=== PATIENT | male | born 1955 | race Caucasian/White ===

== ENCOUNTER 2018-09-30 10:48 | Inpatient (IN) | payer OTHER ==
[~2018-09-30] VITALS: Ht 182.9 cm; Wt 90.6 kg
[~2018-09-30 10:48] MED LIST: ASPI81TA45 PO; ATOR40TA78 PO; HYDR25TA6 PO; INSU100I13 SQ-INSULIN; LISI-167 PO; METF850T PO
[2018-09-30] MEDS ORDERED: LOSA25TA6 PO (11:40)
[2018-09-30] MEDS ORDERED: SODIUM CHLORIDE FLUSH 10ML SYR IVF ONE (12:00)
[2018-09-30 12:52] LABS: ALANINE AMINOTRANSFERASE 23 U/L (12-78); ALBUMIN 3.5 g/dL (3.4-5.0); ANION GAP 7 mmol/L (5-15); CALCIUM 8.8 mg/dL (8.5-10.1); CHLORIDE 103 mmol/L (98-107); CREATININE 1.01 mg/dL (0.7-1.3); INTERNATIONAL NORMALIZED RATIO 1.08 (0.93-1.1); PROTHROMBIN TIME 11.4 Seconds (9.6-11.5)
[2018-09-30] MEDS ORDERED: LABETALOL 20 MG/4 ML ONE ×2 (12:55→13:55)
[2018-09-30 12:56] LABS: ALKALINE PHOSPHATASE 84 U/L (45-117); BILIRUBIN,TOTAL 0.9 mg/dL (0.2-1.0); TOTAL PROTEIN 6.9 g/dL (6.4-8.2); TROPONIN I < 0.015 ng/mL (0.000-0.045)
[2018-09-30] MEDS ORDERED: LABETALOL 5MG/ML, 20ML IVPush ONE ×2 (13:00→14:00)
[2018-09-30 13:03] LABS: MEAN CORPUSCULAR HEMOGLOBIN 32.1 pg (27.5-34.5); MEAN CORPUSCULAR VOLUME 92.3 fL (81-97); RED BLOOD COUNT 5.03 x10^6/uL (4.38-5.82)
[2018-09-30 13:04] LABS: BASOPHILS # (AUTO) 0.02 x10^3/uL (0-0.1); BASOPHILS % (AUTO) 0 % (0-1); EOSINOPHILS # (AUTO) 0.14 x10^3/uL (0-0.4); EOSINOPHILS % (AUTO) 2 % (1-7); LYMPHOCYTES # (AUTO) 1.48 x10^3/uL (1-3.4); LYMPHOCYTES % (AUTO) 23 % (22-44); MD NO; MEAN CORPUSCULAR HGB CONC 34.8 g/dL (33.2-36.2); MEAN PLATELET VOLUME 7.9 fL (7.4-10.4); MONOCYTES # (AUTO) 0.52 x10^3/uL (0.2-0.8); MONOCYTES % (AUTO) 8 % (2-9); NEUTROPHILS # (AUTO) 4.31 x10^3/uL (1.8-6.8); NEUTROPHILS % (AUTO) 67 % (42-75); PLATELET COUNT 213 x10^3/uL (130-400); RED CELL DISTRIBUTION WIDTH 12.8 % (9.4-14.8)
[2018-09-30] MEDS ORDERED: ASPIRIN 325 MG TABLET PO ONE (14:00)
[2018-09-30] MEDS ORDERED: ASPIRIN 325 MG TABLET ONE (14:03)
[2018-09-30] MEDS ORDERED: GLUCAGON 1 MG IM PRN (15:00)
[2018-09-30] MEDS ORDERED: ONDANSETRON 2MG/ML, 2ML IVPush PRN (15:00)
[2018-09-30] MEDS ORDERED: ONDANSETRON ODT 4 MG PO PRN (15:00)
[2018-09-30] MEDS ORDERED: DEXTROSE 4 GM TAB.CHEW PO PRN (15:00)
[2018-09-30] MEDS ORDERED: POLYETHYLENE GLYCOL 17 GM PACKET PO PRN (15:00)
[2018-09-30] MEDS ORDERED: DEXTROSE 50%, 50ML SYRINGE IVPush PRN (15:00)
[2018-09-30] MEDS ORDERED: LABETALOL 5MG/ML, 20ML IVPush PRN (15:00)
[2018-09-30 15:13] VITALS: BP 167/103
[2018-09-30 15:35] VITALS: BP 157/100
[2018-09-30] MEDS ORDERED: MAGNESIUM SULFATE PMX 2GM/50ML 50 ML IV ONE (16:00)
[2018-09-30] MEDS: ENOXAPARIN 40 MG/0.4 ML SQ SCH (16:08)
[2018-09-30 17:33] VITALS: BP 154/97
[2018-09-30] MEDS: INSULIN LISPRO 100 UNITS/ML, PEN SQ-INSULIN SCH ×2 (17:50→21:52)
[2018-09-30 18:05] LABS: MICROSCOPIC NOT IND
[2018-09-30 18:17] LABS: AMPHETAMINE SCREEN, URINE Negative (Negative); BARBITURATE SCREEN, URINE Negative (Negative); BENZODIAZEPINE SCREEN, URINE Negative (Negative); CANNABINOID SCREEN, URINE Negative (Negative); COCAINE SCREEN, URINE Negative (Negative); METHADONE SCREEN, URINE Negative (Negative); OPIATE SCREEN, URINE Negative (Negative)
[2018-09-30 18:27] LABS: CULTURE INDICATED? NO
[2018-09-30 19:00] VITALS: BP 150/94
[2018-09-30] MEDS: SODIUM CHLORIDE FLUSH 10ML SYR IVF SCH (21:00)
[2018-09-30] MEDS ORDERED: INSULIN GLARGINE 100 UNITS/ML, PEN SQ-INSULIN SCH (21:00)
[2018-09-30] MEDS ORDERED: DIPHENHYDRAMINE 25 MG CAPSULE ONE (21:50)
[2018-09-30] MEDS: ATORVASTATIN 40 MG TABLET PO SCH (21:51)
[2018-09-30] MEDS: INSULIN GLARGINE 100 UNITS/ML, PEN SQ-INSULIN SCH (21:52)
[2018-09-30] MEDS ORDERED: DIPHENHYDRAMINE 25 MG CAPSULE PO PRN (22:00)
[2018-10-01 04:14] VITALS: BP 145/99
[2018-10-01 05:25] LABS: BASOPHILS # (AUTO) 0.02 x10^3/uL (0-0.1); BASOPHILS % (AUTO) 0 % (0-1); EOSINOPHILS # (AUTO) 0.18 x10^3/uL (0-0.4); EOSINOPHILS % (AUTO) 4 % (1-7); LYMPHOCYTES % (AUTO) 37 % (22-44); MD NO; MEAN CORPUSCULAR HEMOGLOBIN 32.5 pg (27.5-34.5); MEAN CORPUSCULAR VOLUME 92.9 fL (81-97); MEAN PLATELET VOLUME 7.8 fL (7.4-10.4); MONOCYTES % (AUTO) 10 % (2-9); NEUTROPHILS # (AUTO) 2.41 x10^3/uL (1.8-6.8); NEUTROPHILS % (AUTO) 49 % (42-75); PLATELET COUNT 199 x10^3/uL (130-400); RED BLOOD COUNT 4.85 x10^6/uL (4.38-5.82); RED CELL DISTRIBUTION WIDTH 12.6 % (9.4-14.8)
[2018-10-01] MEDS: ASPIRIN 81 MG TABLET EC PO SCH (05:33)
[2018-10-01 05:38] LABS: ALANINE AMINOTRANSFERASE 19 U/L (12-78); ALBUMIN 3.3 g/dL (3.4-5.0); ANION GAP 7 mmol/L (5-15); CALCIUM 8.6 mg/dL (8.5-10.1); CHLORIDE 105 mmol/L (98-107)
[2018-10-01 05:50] LABS: ALKALINE PHOSPHATASE 76 U/L (45-117); BILIRUBIN,TOTAL 0.8 mg/dL (0.2-1.0); CREATININE 0.82 mg/dL (0.7-1.3); TOTAL PROTEIN 6.2 g/dL (6.4-8.2)
[2018-10-01] MEDS: INSULIN LISPRO 100 UNITS/ML, PEN SQ-INSULIN SCH ×4 (07:00→20:29)
[2018-10-01 07:17] VITALS: BP 142/94
[2018-10-01] MEDS ORDERED: POTASSIUM CHLORIDE 20 MEQ TAB.ER.PRT PO ONE ×2 (08:00→11:30)
[2018-10-01] MEDS: CLOPIDOGREL 75 MG TABLET PO SCH (09:40)
[2018-10-01] MEDS: SENNA/DOCUSATE TABLET PO SCH (09:41)
[2018-10-01] MEDS: SODIUM CHLORIDE FLUSH 10ML SYR IVF SCH ×2 (09:42→20:47)
[2018-10-01] MEDS ORDERED: INSULIN GLARGINE 100 UNITS/ML, PEN SQ-INSULIN SCH (11:00)
[2018-10-01] MEDS ORDERED: ACETAMINOPHEN 325 MG TABLET PO PRN (11:30)
[2018-10-01 13:23] VITALS: BP 157/101
[2018-10-01 14:54] VITALS: BP 157/98
[2018-10-01] MEDS: LOSARTAN 50MG TABLET PO SCH (14:56)
[2018-10-01] MEDS: HYDROCHLOROTHIAZIDE 25 MG TABLET PO SCH (14:56)
[2018-10-01] MEDS: ENOXAPARIN 40 MG/0.4 ML SQ SCH (17:01)
[2018-10-01] MEDS: ATORVASTATIN 40 MG TABLET PO SCH (20:26)
[2018-10-01] MEDS: INSULIN GLARGINE 100 UNITS/ML, PEN SQ-INSULIN SCH (20:29)
[2018-10-01 20:37] VITALS: BP 156/91
[2018-10-01] MEDS ORDERED: TEMAZEPAM 15 MG CAPSULE ONE (22:25)
[2018-10-01] MEDS ORDERED: TEMAZEPAM 15 MG CAPSULE PO PRN (22:30)
[2018-10-02 00:44] VITALS: BP 147/100
[2018-10-02 05:23] LABS: BASOPHILS # (AUTO) 0.03 x10^3/uL (0-0.1); BASOPHILS % (AUTO) 1 % (0-1); CHLORIDE 106 mmol/L (98-107); EOSINOPHILS % (AUTO) 4 % (1-7); LYMPHOCYTES # (AUTO) 2.09 x10^3/uL (1-3.4); LYMPHOCYTES % (AUTO) 38 % (22-44); MD NO; MEAN CORPUSCULAR HEMOGLOBIN 32.8 pg (27.5-34.5); MEAN CORPUSCULAR VOLUME 93.9 fL (81-97); MEAN PLATELET VOLUME 7.7 fL (7.4-10.4); MONOCYTES # (AUTO) 0.59 x10^3/uL (0.2-0.8); MONOCYTES % (AUTO) 11 % (2-9); NEUTROPHILS # (AUTO) 2.64 x10^3/uL (1.8-6.8); NEUTROPHILS % (AUTO) 48 % (42-75); PLATELET COUNT 205 x10^3/uL (130-400); RED BLOOD COUNT 4.88 x10^6/uL (4.38-5.82); RED CELL DISTRIBUTION WIDTH 12.7 % (9.4-14.8)
[2018-10-02 05:30] LABS: ANION GAP 9 mmol/L (5-15); CREATININE 1.05 mg/dL (0.7-1.3)
[2018-10-02] MEDS: ASPIRIN 81 MG TABLET EC PO SCH (06:08)
[2018-10-02 07:35] VITALS: BP 151/98
[2018-10-02] MEDS: INSULIN GLARGINE 100 UNITS/ML, PEN SQ-INSULIN SCH ×2 (09:00→09:06)
[2018-10-02] MEDS: HYDROCHLOROTHIAZIDE 25 MG TABLET PO SCH (09:02)
[2018-10-02] MEDS: LOSARTAN 50MG TABLET PO SCH (09:03)
[2018-10-02] MEDS: CLOPIDOGREL 75 MG TABLET PO SCH (09:03)
[2018-10-02] MEDS: SENNA/DOCUSATE TABLET PO SCH (09:04)
[2018-10-02] MEDS: INSULIN LISPRO 100 UNITS/ML, PEN SQ-INSULIN SCH ×2 (09:07→12:55)
[2018-10-02] MEDS: SODIUM CHLORIDE FLUSH 10ML SYR IVF SCH (09:07)
[2018-10-02] MEDS ORDERED: ASPI81TA45 PO (11:29)
[2018-10-02] MEDS ORDERED: LOSA50TA2 PO (11:29)
[2018-10-02] MEDS ORDERED: INSU100I13 SQ-INSULIN (11:29)
[2018-10-02] MEDS ORDERED: CLOP75TA PO (11:29)
[2018-10-02 14:39] VITALS: BP 129/87
[2018-10-02] MEDS: ENOXAPARIN 40 MG/0.4 ML SQ SCH (15:30)
[2018-10-02] MEDS ORDERED: HYDR25TA6 PO (15:37)
== END 2018-10-02 16:20 | disposition home or self-care (01) | DRG 65 ==
LOC: ED 12:50 → EDIP 13:58 → 4EST 15:07 → 4WST 15:41 → DCLOUNGE 10-02 15:52
PROVIDERS: ADMIT Internal Medicine; ATTEND Internal Medicine
DX: I61.3 Nontraumatic intracerebral hemorrhage in brain stem (principal); I50.30 Unspecified diastolic (congestive) heart failure; E11.65 Type 2 diabetes mellitus with hyperglycemia; I11.0 Hypertensive heart disease with heart failure; I35.1 Nonrheumatic aortic (valve) insufficiency; E87.6 Hypokalemia; E83.42 Hypomagnesemia; E78.5 Hyperlipidemia, unspecified; I65.23 Occlusion and stenosis of bilateral carotid arteries; I77.810 Thoracic aortic ectasia; R32 Unspecified urinary incontinence; Z79.82 Long term (current) use of aspirin; Z82.49 Family history of ischemic heart disease and other diseases of the circulatory system; Z86.73 Personal history of transient ischemic attack (TIA), and cerebral infarction without residual deficits; Z87.891 Personal history of nicotine dependence; E66.9 Obesity, unspecified; F10.10 Alcohol abuse, uncomplicated
CPT/HCPCS: 0399T; 36415; 70551; 80048; 80053; 80307; 81003; 82962; 83036; 83735; 84100; 84439; 84443; 84484; 85025; 85610; 93005; 93306; 93880; 96374; 96376; 99291; G0378; J1650; 92523-GN; J1815; J3475; Q0163

== ENCOUNTER 2018-11-28 20:35 | Inpatient (IN) | payer MEDICAID ==
[~2018-11-28] VITALS: Ht 182.9 cm; Wt 92.0 kg
[~2018-11-28 20:35] MED LIST changes: +CLOP75TA PO; +LOSA25TA25 PO; +LOSA50TA2 PO
--- NOTE | 2018-11-28 20:45 | NUR ---
Preceptor note: pt presents to ED by ambulance. report taken from EMS. pt c/o sudden onset blurred/double vision, dizziness, nausea and vomiting, symptom onset 1700 tonight. pt notes gradual onset headache following these symptoms, rates pain at 2/10 at this time. 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 pt is a&ox4, resps even and unlabored. neuro intact, all extremities equal strength 5/5, no drift, equal grasp bilaterally. pt able to speak in clear, full sentences. pt ambulatory with steady gait on arrival. pupils are equal round and reactive, face symmetrical. pt reports he has not taken bp meds today, noted to be hypertensive 200/100s [employer] captain.
--- NOTE | 2018-11-28 20:46 | NUR ---
edmd jovani at bedside to evaluate, EKG taken by EDT, reviewed by EDMD.
--- NOTE | 2018-11-28 20:50 | NUR ---
per EDIE Briseno, no code neuro indicated at this time d/t negative stroke scale performed by
--- NOTE | 2018-11-28 20:55 | NUR ---
verbal order received from EDIE Briseno for 20 mg IV labetalol. this is not in ED omnicell, pharmacy notified to send to ED tammi.
[2018-11-28] MEDS ORDERED: LABETALOL 5MG/ML, 20ML IVPush ONE (21:00)
--- NOTE | 2018-11-28 21:15 | NUR ---
RN instructed to give labetalol IV push prior to ct. pt medicated per emar, tolerated well. pt remains in NSR on cardiac montior, rate 80s with no ectopy. repeat bp immediately after admin 190/122. pt to CT at this time.
[2018-11-28 21:21] LABS: ANION GAP 9 mmol/L (5-15); CALCIUM 9.2 mg/dL (8.5-10.1); CHLORIDE 103 mmol/L (98-107); CREATININE 1.03 mg/dL (0.7-1.3)
[2018-11-28 21:24] LABS: TROPONIN I < 0.015 ng/mL (0.000-0.045)
[2018-11-28 21:32] LABS: BASOPHILS # (AUTO) 0.02 x10^3/uL (0-0.1); BASOPHILS % (AUTO) 0 % (0-1); EOSINOPHILS # (AUTO) 0.06 x10^3/uL (0-0.4); EOSINOPHILS % (AUTO) 1 % (1-7); LYMPHOCYTES # (AUTO) 1.19 x10^3/uL (1-3.4); LYMPHOCYTES % (AUTO) 23 % (22-44); MD NO; MEAN CORPUSCULAR HEMOGLOBIN 31.7 pg (27.5-34.5); MEAN CORPUSCULAR VOLUME 93.1 fL (81-97); MEAN PLATELET VOLUME 8.6 fL (7.4-10.4); MONOCYTES # (AUTO) 0.43 x10^3/uL (0.2-0.8); MONOCYTES % (AUTO) 8 % (2-9); NEUTROPHILS # (AUTO) 3.53 x10^3/uL (1.8-6.8); NEUTROPHILS % (AUTO) 67 % (42-75); PLATELET COUNT 197 x10^3/uL (130-400); RED BLOOD COUNT 5.14 x10^6/uL (4.38-5.82); RED CELL DISTRIBUTION WIDTH 12.5 % (9.4-14.8)
[2018-11-28] MEDS ORDERED: ENALAPRILAT 1.25 MG/ML, 2ML ONE (21:50)
[2018-11-28] MEDS ORDERED: ONDANSETRON 2MG/ML, 2ML ONE (21:50)
--- NOTE | 2018-11-28 21:57 | NUR ---
pt's bp is 194/122. pt requesting med for nausea. edmd notified.
--- NOTE | 2018-11-28 21:58 | NUR ---
pt medicated per emar for htn. pt tolerated well. pt aox4. resps even and unlabored.
[2018-11-28] MEDS ORDERED: ONDANSETRON 2MG/ML, 2ML IVPush ONE (22:00)
[2018-11-28] MEDS ORDERED: ENALAPRILAT 1.25 MG/ML, 2ML IV ONE (22:00)
[2018-11-28] MEDS ORDERED: SITA25TA PO (22:23)
[2018-11-28] MEDS ORDERED: propranolol (22:23)
[2018-11-28] MEDS ORDERED: metoprolol (22:24)
[2018-11-28] MEDS ORDERED: GLIPIZIDE (22:25)
--- NOTE | 2018-11-28 22:42 | NUR ---
pt provided urinal at bedside. pt resting in [facility]. pt aox4. resps even and unlabored. all monitors in place. call light within reach.
--- NOTE | 2018-11-28 22:51 | NUR ---
pt reports headache level 1/10 at this time. pt a&ox4, resps even and unlabored. neuro remains intact. pt reports blurred vision is improving. all results back, chart up for recheck. awaiting MD and dispo.
[2018-11-28] MEDS ORDERED: propranolol PO (22:56)
[2018-11-28] MEDS ORDERED: metoprolol PO (22:56)
[2018-11-28] MEDS ORDERED: GLIP10TA13 PO (22:56)
--- NOTE | 2018-11-28 23:10 | NUR ---
hospitalist Robert ARMIJO at bedside to admit pt. notified BP is 188/100 at this time; labetalol 20 mg IV push and enalapril 1.25 IV push already given. awaiting further orders.
[2018-11-28] MEDS ORDERED: INSULIN GLARGINE 100 UNITS/ML, PEN SQ-INSULIN SCH (23:30)
[2018-11-28] MEDS ORDERED: OXYcodone IR 5MG TABLET PO PRN (23:30)
[2018-11-28] MEDS ORDERED: ONDANSETRON ODT 4 MG PO PRN (23:30)
[2018-11-28] MEDS ORDERED: morphine SULFATE 10 MG/ML, 1ML IVPush PRN (23:30)
[2018-11-28] MEDS ORDERED: DOCUSATE 100 MG CAPSULE PO PRN (23:30)
[2018-11-28] MEDS ORDERED: BISACODYL 10 MG SUPP PR PRN (23:30)
[2018-11-28] MEDS ORDERED: ONDANSETRON 2MG/ML, 2ML IVPush PRN (23:30)
[2018-11-28] MEDS ORDERED: ENALAPRILAT 1.25 MG/ML, 2ML IVPush PRN (23:30)
[2018-11-28] MEDS ORDERED: POLYETHYLENE GLYCOL 17 GM PACKET PO PRN (23:30)
[2018-11-28] MEDS ORDERED: GABAPENTIN 300 MG CAPSULE PO PRN (23:30)
[2018-11-28] MEDS ORDERED: PROMETHAZINE 25 MG/ML, 1ML IM PRN (23:30)
[2018-11-28] MEDS ORDERED: LABETALOL 5MG/ML, 20ML IVPush PRN (23:30)
[2018-11-28] MEDS ORDERED: hydrALAzine 20 MG/ML, 1ML ONE (23:31)
[2018-11-28] MEDS: hydrALAzine 20 MG/ML, 1ML IVPush PRN (23:34)
--- NOTE | 2018-11-28 23:35 | NUR ---
report given to JENN Lerner, pt awaiting transport to room 508-1
--- NOTE | 2018-11-28 23:36 | NUR ---
pt medicated per emar for htn 181/103. pt tolerated well. awaiting admit at this time.
--- NOTE | 2018-11-28 23:42 | NUR ---
receiving RN given updated report including most recent med given. pt transported to room 508-1, anjelican at transport.
[2018-11-28 23:46] LABS: FREE T4 (FREE THYROXINE) 1.12 ng/dL (0.76-1.46); THYROID STIMULATING HORMONE 1.48 mIU/L (0.358-3.740)
[2018-11-28 23:58] LABS: HEMOGLOBIN A1C 11.1 % (4.2-6.3)
[2018-11-29 00:04] VITALS: BP 158/98
[2018-11-29 01:00] VITALS: BP 159/97
[2018-11-29] MEDS: HEPARIN 5,000 UNITS/ML, 1ML SQ SCH ×3 (01:06→16:43)
[2018-11-29] MEDS: ATORVASTATIN 40 MG TABLET PO SCH ×2 (01:06→21:44)
[2018-11-29] MEDS: CARVEDILOL 6.25 MG TABLET PO SCH ×2 (01:08→06:33)
[2018-11-29] MEDS: SODIUM CHLORIDE 0.9% 1,000 ML IV SCH ×2 (01:08→09:35)
[2018-11-29] MEDS: INSULIN LISPRO 100 UNITS/ML, PEN SQ-INSULIN SCH ×5 (01:20→21:14)
[2018-11-29] MEDS: ACETAMINOPHEN 325 MG TABLET PO PRN ×2 (01:20→21:44)
[2018-11-29 06:06] LABS: ALBUMIN 3.7 g/dL (3.4-5.0); CHLORIDE 107 mmol/L (98-107)
[2018-11-29 06:12] LABS: ALANINE AMINOTRANSFERASE 27 U/L (12-78); ALKALINE PHOSPHATASE 72 U/L (45-117); ANION GAP 9 mmol/L (5-15); BILIRUBIN,TOTAL 0.7 mg/dL (0.2-1.0); CALCIUM 8.8 mg/dL (8.5-10.1); CHOL/HDL RATIO 3.6; CHOLESTEROL, TOTAL 178 mg/dL (140-239); CREATININE 0.84 mg/dL (0.7-1.3); HDL CHOL % 28 % (26-37); HDL CHOLESTEROL (DIRECT) 49 mg/dL (40-60); LDL CHOLESTEROL,CALCULATED 103 mg/dL (54-169); LDL/HDL RATIO 2.1 (0.5-3.0); TOTAL PROTEIN 6.5 g/dL (6.4-8.2); TRIGLYCERIDES 128 mg/dL (50-200); VLDL CHOLESTEROL 26 mg/dL (0-25)
[2018-11-29 06:22] LABS: BASOPHILS # (AUTO) 0.02 x10^3/uL (0-0.1); BASOPHILS % (AUTO) 0 % (0-1); EOSINOPHILS # (AUTO) 0.05 x10^3/uL (0-0.4); EOSINOPHILS % (AUTO) 1 % (1-7); LYMPHOCYTES # (AUTO) 1.48 x10^3/uL (1-3.4); LYMPHOCYTES % (AUTO) 21 % (22-44); MD NO; MEAN CORPUSCULAR HGB CONC 34.7 g/dL (33.2-36.2); MEAN CORPUSCULAR VOLUME 92.2 fL (81-97); MEAN PLATELET VOLUME 8.4 fL (7.4-10.4); MONOCYTES # (AUTO) 0.52 x10^3/uL (0.2-0.8); MONOCYTES % (AUTO) 7 % (2-9); NEUTROPHILS # (AUTO) 5.02 x10^3/uL (1.8-6.8); NEUTROPHILS % (AUTO) 71 % (42-75); PLATELET COUNT 200 x10^3/uL (130-400); RED BLOOD COUNT 4.94 x10^6/uL (4.38-5.82); RED CELL DISTRIBUTION WIDTH 12.5 % (9.4-14.8)
[2018-11-29 06:30] VITALS: BP 138/72
[2018-11-29] MEDS: ASPIRIN 81 MG TABLET EC PO SCH (06:33)
[2018-11-29] MEDS ORDERED: LOSARTAN 50MG TABLET PO SCH (09:00)
[2018-11-29] MEDS: LINAGLIPTIN 5 MG TAB PO SCH (09:34)
[2018-11-29] MEDS: HYDROCHLOROTHIAZIDE 25 MG TABLET PO SCH (09:35)
[2018-11-29 12:11] VITALS: BP 135/89
[2018-11-29] MEDS ORDERED: POTASSIUM CHLORIDE 20 MEQ TAB.ER.PRT PO ONE (13:30)
[2018-11-29] MEDS ORDERED: INSULIN GLARGINE 100 UNITS/ML, PEN SQ-INSULIN SCH ×2 (13:30→21:00)
[2018-11-29] MEDS ORDERED: CARVEDILOL 6.25 MG TABLET PO ONE (13:30)
[2018-11-29] MEDS ORDERED: CLOP75TA PO (16:12)
[2018-11-29 16:42] VITALS: BP 139/87
[2018-11-29] MEDS: CARVEDILOL 12.5 MG TABLET PO SCH (16:44)
[2018-11-29] MEDS ORDERED: CARVEDILOL 12.5 MG TABLET PO SCH (18:00)
[2018-11-29 21:27] VITALS: BP 149/86
[2018-11-29] MEDS ORDERED: INSULIN GLARGINE 100 UNITS/ML, PEN SQ-INSULIN ONE (21:30)
[2018-11-30] VITALS (7 sets, daily range): BP systolic 132–159; BP diastolic 89–115
[2018-11-30] MEDS: HEPARIN 5,000 UNITS/ML, 1ML SQ SCH ×3 (02:27→17:00)
[2018-11-30] MEDS: hydrALAzine 20 MG/ML, 1ML IVPush PRN ×2 (02:40→02:43)
[2018-11-30 04:55] LABS: ANION GAP 7 mmol/L (5-15); CALCIUM 9.1 mg/dL (8.5-10.1); CHLORIDE 109 mmol/L (98-107)
[2018-11-30 04:56] LABS: CREATININE 0.76 mg/dL (0.7-1.3)
[2018-11-30] MEDS ORDERED: INSULIN GLARGINE 100 UNITS/ML, PEN SQ-INSULIN SCH ×2 (06:00→09:00)
[2018-11-30] MEDS: LOSARTAN 50MG TABLET PO SCH ×2 (06:32→06:55)
[2018-11-30] MEDS: INSULIN LISPRO 100 UNITS/ML, PEN SQ-INSULIN SCH ×3 (06:49→16:00)
[2018-11-30] MEDS: ASPIRIN 81 MG TABLET EC PO SCH (06:54)
[2018-11-30] MEDS: CARVEDILOL 12.5 MG TABLET PO SCH ×2 (06:55→18:05)
[2018-11-30] MEDS: ACETAMINOPHEN 325 MG TABLET PO PRN (06:55)
[2018-11-30] MEDS: INSULIN GLARGINE 100 UNITS/ML, PEN SQ-INSULIN SCH ×2 (06:56→08:46)
[2018-11-30] MEDS ORDERED: INSULIN LISPRO 100 UNITS/ML, PEN SQ-INSULIN ONE ×2 (07:30→12:30)
[2018-11-30] MEDS: LINAGLIPTIN 5 MG TAB PO SCH (08:46)
[2018-11-30] MEDS: HYDROCHLOROTHIAZIDE 25 MG TABLET PO SCH (08:46)
[2018-11-30] MEDS ORDERED: CARV12.543 PO (15:36)
[2018-11-30] MEDS ORDERED: INSU100I13 SQ-INSULIN (15:36)
[2018-11-30] MEDS ORDERED: GABA300C10 PO (15:36)
[2018-11-30] MEDS ORDERED: LOSA50TA2 PO (15:36)
[2018-11-30] MEDS ORDERED: LOSARTAN 50MG TABLET PO SCH (21:00)
== END 2018-11-30 18:10 | disposition home or self-care (01) | DRG 638 ==
LOC: ED 23:05 → EDIP 23:13 → 5SO 23:46 → 4WST 23:56
PROVIDERS: ADMIT Internal Medicine; ATTEND Internal Medicine
DX: E11.00 Type 2 diabetes mellitus with hyperosmolarity without nonketotic hyperglycemic-hyperosmolar coma (NKHHC) (principal); G45.9 Transient cerebral ischemic attack, unspecified; E11.65 Type 2 diabetes mellitus with hyperglycemia; E66.9 Obesity, unspecified; E78.5 Hyperlipidemia, unspecified; I10 Essential (primary) hypertension; Z82.49 Family history of ischemic heart disease and other diseases of the circulatory system; Z91.14 Patient's other noncompliance with medication regimen; I77.810 Thoracic aortic ectasia; Z68.27 Body mass index [BMI] 27.0-27.9, adult
CPT/HCPCS: 36415; 70450; 71045; 80048; 80053; 80061; 82040; 82962; 83036; 83735; 84439; 84443; 84484; 85025; 93005; 96374; 96375; G0378; J1644; J2405; J2550; J0360; J1815; J7030

== ENCOUNTER 2019-03-17 21:48 | Emergency (ER) | payer MEDICAID, OTHER ==
[~2019-03-17] VITALS: Ht 182.9 cm; Wt 95.0 kg
[~2019-03-17 21:48] MED LIST changes: +CARV12.543 PO; +GABA300C10 PO; +GLIP10TA13 PO; +GLIPIZIDE; +SITA25TA PO; +metoprolol; +metoprolol PO; +propranolol; +propranolol PO
--- NOTE | 2019-03-17 22:32 | NUR ---
PT HERE FOR FEELING TIRED. PT THOUGHT BS WAS LOW. FSBG WAS 419 ON ARRIVAL. VSS. PT HASNT CHECKED BS IN 1 WEEK AND HASNT TAKEN INSULIN FOR SEVERAL DAYS. PT TO HAVE LABS DRAWN AND IS RESTING IN NAD. CALL LIGHT IN REACH
[2019-03-17 22:41] LABS: BASOPHILS # (AUTO) 0.01 x10^3/uL (0-0.1); BASOPHILS % (AUTO) 0 % (0-1); EOSINOPHILS % (AUTO) 2 % (1-7); LYMPHOCYTES # (AUTO) 1.22 x10^3/uL (1-3.4); LYMPHOCYTES % (AUTO) 22 % (22-44); MD NO; MEAN CORPUSCULAR HEMOGLOBIN 32.5 pg (27.5-34.5); MEAN CORPUSCULAR HGB CONC 34.2 g/dL (33.2-36.2); MEAN CORPUSCULAR VOLUME 95.2 fL (81-97); MEAN PLATELET VOLUME 8.5 fL (7.4-10.4); MONOCYTES # (AUTO) 0.74 x10^3/uL (0.2-0.8); MONOCYTES % (AUTO) 14 % (2-9); NEUTROPHILS # (AUTO) 3.41 x10^3/uL (1.8-6.8); NEUTROPHILS % (AUTO) 62 % (42-75); PLATELET COUNT 178 x10^3/uL (130-400); RED BLOOD COUNT 4.54 x10^6/uL (4.38-5.82)
[2019-03-17 22:48] LABS: ALBUMIN 3.3 g/dL (3.4-5.0); ANION GAP 8 mmol/L (5-15); CALCIUM 8.8 mg/dL (8.5-10.1); CHLORIDE 97 mmol/L (98-107); CREATININE 1.03 mg/dL (0.7-1.3)
[2019-03-17 23:10] VITALS: BP 145/89
[2019-03-17] MEDS ORDERED: INSULIN LISPRO 100 UNITS/ML, PEN ONE (23:30)
[2019-03-17] MEDS ORDERED: INSULIN REGULAR 100 UNITS/ML, 3ML VIAL IVPush ONE (23:30)
--- NOTE | 2019-03-17 23:41 | NUR ---
Patient medicated with insulin and tolerated well. Patient given discharge instructions and they have confirmed that they understand the instructions. Patient ambulatory with steady gait. Patient given cab voucher for [facility]
== END 2019-03-17 23:44 | disposition home or self-care (01) ==
LOC: ED 22:54
DX: E10.21 Type 1 diabetes mellitus with diabetic nephropathy (principal); Z86.73 Personal history of transient ischemic attack (TIA), and cerebral infarction without residual deficits; I10 Essential (primary) hypertension
CPT/HCPCS: 80048; 82040; 82962; 85025; 96374; 99283; J1815

== ENCOUNTER 2019-03-19 12:07 | Inpatient (IN) | payer MEDICAID, OTHER ==
[~2019-03-19] VITALS: Ht 182.9 cm; Wt 90.1 kg
--- NOTE | 2019-03-19 12:20 | NUR ---
BIB EMS - PT [facility], PER REPORT PT FATHER CALLED BECAUSE "DISORIENTED AND SICK". PT FOUND TO HAVE BS OF 479, PT WITH C/O SLIGHT MATTA. PT ARRIVED WITH IV IN RAC, RECEIVED 150 ML OF NS BY EMS. PT PLACED ON MONITORS, ST PER MONITOR.
[2019-03-19 12:50] LABS: PH, VENOUS 7.317 pH (7.320-7.420)
[2019-03-19 12:51] LABS: BASOPHILS # (AUTO) 0.01 x10^3/uL (0-0.1); BASOPHILS % (AUTO) 0 % (0-1); EOSINOPHILS # (AUTO) 0.07 x10^3/uL (0-0.4); EOSINOPHILS % (AUTO) 1 % (1-7); FIO2 ROOM AIR %; LYMPHOCYTES # (AUTO) 1.04 x10^3/uL (1-3.4); LYMPHOCYTES % (AUTO) 22 % (22-44); MD NO; MEAN CORPUSCULAR HGB CONC 34.8 g/dL (33.2-36.2); MEAN CORPUSCULAR VOLUME 94.9 fL (81-97); MEAN PLATELET VOLUME 8.3 fL (7.4-10.4); MONOCYTES # (AUTO) 0.53 x10^3/uL (0.2-0.8); MONOCYTES % (AUTO) 11 % (2-9); NEUTROPHILS # (AUTO) 3.14 x10^3/uL (1.8-6.8); NEUTROPHILS % (AUTO) 66 % (42-75); PLATELET COUNT 197 x10^3/uL (130-400); RED BLOOD COUNT 4.77 x10^6/uL (4.38-5.82)
--- NOTE | 2019-03-19 13:01 | NUR ---
PT TO CT VIA TONY
[2019-03-19 13:05] LABS: ALANINE AMINOTRANSFERASE 28 U/L (12-78); ALBUMIN 3.4 g/dL (3.4-5.0); ANION GAP 10 mmol/L (5-15); CALCIUM 8.7 mg/dL (8.5-10.1); CHLORIDE 102 mmol/L (98-107); CREATININE 1.05 mg/dL (0.7-1.3)
[2019-03-19 13:08] LABS: ALKALINE PHOSPHATASE 97 U/L (45-117); BILIRUBIN,TOTAL 0.8 mg/dL (0.2-1.0)
[2019-03-19 13:19] LABS: MICROSCOPIC AUTO
[2019-03-19 13:30] LABS: CULTURE INDICATED? NO
[2019-03-19] MEDS ORDERED: SODIUM CHLORIDE 0.9% 1,000ML IVBOLUS ONE (13:30)
[2019-03-19 13:40] LABS: ACETONE, SERUM Small (20mg/dL) mg/dL (Negative)
--- NOTE | 2019-03-19 13:49 | NUR ---
PT SLEEPING, AROUSES TO NAME. PT DENIES ANY NEEDS. CONT SR PER MONITOR.
--- NOTE | 2019-03-19 14:05 | NUR ---
BREAK NOTE: PT.'S BLOOD SUGARS WERE CHECKED AND RESULTS WERE GIVEN TO DR. ABERNATHY. NS BOLUS IS INFUSING. PT. REMAINS MONITORED WITH THE HOB ELEVATED GREATER THAN 30 DEGREES. PT. WAS GIVEN ICE CHIPS FOR HIS COMFORT. VITALS MONITORED. PT. IS RESTING WITH THE SIDERAILS UP X 2 AND THE CALL LIGHT IN PLACE. PT. HAS NO CONCERNS AT THIS TIME.
[2019-03-19 14:23] LABS: TROPONIN I 0.024 ng/mL (0.000-0.045)
--- NOTE | 2019-03-19 15:18 | NUR ---
PT STATES, "I HAVE A MATTA, BUT IT'S NOT THAT BAD". PT RESTING AND DENIES ANY NEEDS AT THIS TIME. PT KEEPS ASKING FOR HIS CELL PHONE, I CHECKED THE PT BELONGING BAG AND THERE IS NO PHONE PRESENT.
[2019-03-19] MEDS ORDERED: DEXTROSE 4 GM TAB.CHEW PO PRN (15:30)
[2019-03-19] MEDS ORDERED: DEXTROSE 50%, 50ML SYRINGE IVPush PRN (15:30)
[2019-03-19] MEDS ORDERED: GABAPENTIN 300 MG CAPSULE PO PRN (15:30)
[2019-03-19] MEDS ORDERED: GLUCAGON 1 MG IM PRN (15:30)
[2019-03-19 15:31] LABS: TROPONIN I 0.033 ng/mL (0.000-0.045)
--- NOTE | 2019-03-19 15:32 | NUR ---
I CALLED DR PANIAGUA TO REPORT RECENT BP OF 184/125. I REQUESTED MD GENNARO TO PLACE ORDER.
--- NOTE | 2019-03-19 16:07 | NUR ---
I ATTEMPTED TO CALL AND GIVE REPORT ON PT. ANUPAMA SAID HE WOULD HAVE GÓMEZ CALL ME BACK.
--- NOTE | 2019-03-19 16:19 | NUR ---
I CALLED REPORT TO GÓMEZ, PLAN OF CARE DISCUSSED. GÓMEZ WAS CONCERNED ABOUT THE BP. I MADE A REPEAT CALL TO DR PANIAGUA AND REQUESTED BP MED PRIOR TO TRANSFER TO FLOOR.
[2019-03-19 16:23] LABS: HCT (SEDRATE) 45.4 % (39.2-51.8)
[2019-03-19] MEDS ORDERED: hydrALAzine 20 MG/ML, 1ML ONE (16:50)
[2019-03-19] MEDS ORDERED: hydrALAzine 20 MG/ML, 1ML IV ONE (17:00)
[2019-03-19 17:15] VITALS: BP 161/107
[2019-03-19] MEDS: LACTATED RINGERS 1,000 ML IV SCH (17:17)
[2019-03-19] MEDS: HEPARIN 5,000 UNITS/ML, 1ML SQ SCH (17:38)
[2019-03-19] MEDS: CARVEDILOL 12.5 MG TABLET PO SCH (17:38)
[2019-03-19] MEDS: INSULIN LISPRO 100 UNITS/ML, PEN SQ-INSULIN SCH ×2 (18:20→20:40)
[2019-03-19 19:37] VITALS: BP 112/70
[2019-03-19] MEDS: SODIUM CHLORIDE FLUSH 10ML SYR IVF SCH (20:38)
[2019-03-19] MEDS: LOSARTAN 50MG TABLET PO SCH (20:39)
[2019-03-19] MEDS: ATORVASTATIN 40 MG TABLET PO SCH (20:39)
[2019-03-19] MEDS: INSULIN GLARGINE 100 UNITS/ML, PEN SQ-INSULIN SCH (20:40)
[2019-03-19 21:28] LABS: TROPONIN I 0.041 ng/mL (0.000-0.045)
[2019-03-20 00:36] VITALS: BP 148/84
[2019-03-20] MEDS: HEPARIN 5,000 UNITS/ML, 1ML SQ SCH ×3 (01:03→17:30)
[2019-03-20] MEDS: LACTATED RINGERS 1,000 ML IV SCH ×3 (01:06→17:30)
[2019-03-20 05:21] VITALS: BP 137/92
[2019-03-20] MEDS: CARVEDILOL 12.5 MG TABLET PO SCH ×2 (05:21→17:30)
[2019-03-20] MEDS: ASPIRIN 81 MG TABLET EC PO SCH (05:21)
[2019-03-20 06:31] LABS: BASOPHILS # (AUTO) 0.02 x10^3/uL (0-0.1); BASOPHILS % (AUTO) 0 % (0-1); EOSINOPHILS # (AUTO) 0.12 x10^3/uL (0-0.4); EOSINOPHILS % (AUTO) 3 % (1-7); LYMPHOCYTES # (AUTO) 1.61 x10^3/uL (1-3.4); LYMPHOCYTES % (AUTO) 34 % (22-44); MD NO; MEAN CORPUSCULAR HEMOGLOBIN 32.3 pg (27.5-34.5); MEAN CORPUSCULAR HGB CONC 33.8 g/dL (33.2-36.2); MEAN CORPUSCULAR VOLUME 95.6 fL (81-97); MEAN PLATELET VOLUME 8.4 fL (7.4-10.4); MONOCYTES # (AUTO) 0.53 x10^3/uL (0.2-0.8); MONOCYTES % (AUTO) 11 % (2-9); NEUTROPHILS # (AUTO) 2.44 x10^3/uL (1.8-6.8); NEUTROPHILS % (AUTO) 52 % (42-75); PLATELET COUNT 174 x10^3/uL (130-400); RED BLOOD COUNT 4.45 x10^6/uL (4.38-5.82); RED CELL DISTRIBUTION WIDTH 12.7 % (9.4-14.8)
[2019-03-20 07:03] LABS: ALANINE AMINOTRANSFERASE 19 U/L (12-78); ALBUMIN 2.9 g/dL (3.4-5.0); ANION GAP 8 mmol/L (5-15); CALCIUM 8.4 mg/dL (8.5-10.1); CHLORIDE 106 mmol/L (98-107)
[2019-03-20 07:05] LABS: ALKALINE PHOSPHATASE 78 U/L (45-117); BILIRUBIN,TOTAL 0.6 mg/dL (0.2-1.0); CREATININE 0.67 mg/dL (0.7-1.3); TOTAL PROTEIN 5.9 g/dL (6.4-8.2)
[2019-03-20 08:02] VITALS: BP 147/95
[2019-03-20] MEDS: INSULIN LISPRO 100 UNITS/ML, PEN SQ-INSULIN SCH ×4 (08:19→20:55)
[2019-03-20] MEDS: LOSARTAN 50MG TABLET PO SCH ×2 (08:20→20:54)
[2019-03-20] MEDS: HYDROCHLOROTHIAZIDE 25 MG TABLET PO SCH (08:20)
[2019-03-20] MEDS: CLOPIDOGREL 75 MG TABLET PO SCH (08:20)
[2019-03-20] MEDS: INSULIN GLARGINE 100 UNITS/ML, PEN SQ-INSULIN SCH ×2 (08:20→20:54)
[2019-03-20] MEDS: SODIUM CHLORIDE FLUSH 10ML SYR IVF SCH ×2 (08:21→20:56)
[2019-03-20] MEDS: GUAIFENESIN 200 MG TABLET PO PRN (12:59)
[2019-03-20] MEDS: ACETAMINOPHEN 325 MG TABLET PO PRN (12:59)
[2019-03-20] MEDS ORDERED: POTASSIUM CHLORIDE 20 MEQ TAB.ER.PRT PO ONE (13:00)
[2019-03-20 15:50] VITALS: BP 136/93
[2019-03-20 19:32] VITALS: BP 145/90
[2019-03-20] MEDS: ATORVASTATIN 40 MG TABLET PO SCH (20:54)
[2019-03-21] VITALS (7 sets, daily range): BP systolic 129–174; BP diastolic 83–111
[2019-03-21] MEDS: HEPARIN 5,000 UNITS/ML, 1ML SQ SCH ×3 (00:58→17:15)
[2019-03-21] MEDS: LACTATED RINGERS 1,000 ML IV SCH ×2 (02:07→11:55)
[2019-03-21] MEDS: CARVEDILOL 12.5 MG TABLET PO SCH ×2 (05:23→17:16)
[2019-03-21] MEDS: ASPIRIN 81 MG TABLET EC PO SCH (05:23)
[2019-03-21] MEDS: INSULIN LISPRO 100 UNITS/ML, PEN SQ-INSULIN SCH ×4 (08:36→21:19)
[2019-03-21 08:40] LABS: ALANINE AMINOTRANSFERASE 16 U/L (12-78); ALBUMIN 2.8 g/dL (3.4-5.0); ANION GAP 8 mmol/L (5-15); CALCIUM 8.6 mg/dL (8.5-10.1); CHLORIDE 105 mmol/L (98-107); CREATININE 0.67 mg/dL (0.7-1.3)
[2019-03-21 08:42] LABS: ALKALINE PHOSPHATASE 76 U/L (45-117); BILIRUBIN,TOTAL 0.5 mg/dL (0.2-1.0)
[2019-03-21] MEDS: CLOPIDOGREL 75 MG TABLET PO SCH (09:05)
[2019-03-21] MEDS: GLIPizide ER 5 MG TABLET PO SCH (09:05)
[2019-03-21] MEDS: LOSARTAN 50MG TABLET PO SCH ×2 (09:06→21:18)
[2019-03-21] MEDS: INSULIN GLARGINE 100 UNITS/ML, PEN SQ-INSULIN SCH ×2 (09:06→21:18)
[2019-03-21] MEDS: HYDROCHLOROTHIAZIDE 25 MG TABLET PO SCH (09:06)
[2019-03-21] MEDS: SODIUM CHLORIDE FLUSH 10ML SYR IVF SCH ×2 (09:07→21:19)
[2019-03-21] MEDS: GUAIFENESIN 200 MG TABLET PO PRN (09:11)
[2019-03-21] MEDS: ATORVASTATIN 40 MG TABLET PO SCH (21:18)
[2019-03-22] MEDS: HEPARIN 5,000 UNITS/ML, 1ML SQ SCH ×3 (00:54→17:53)
[2019-03-22 01:34] VITALS: BP 128/88
[2019-03-22 05:56] VITALS: BP 160/102
[2019-03-22] MEDS: ASPIRIN 81 MG TABLET EC PO SCH (05:58)
[2019-03-22] MEDS: CARVEDILOL 12.5 MG TABLET PO SCH ×2 (05:58→17:54)
[2019-03-22] MEDS: INSULIN LISPRO 100 UNITS/ML, PEN SQ-INSULIN SCH ×4 (07:00→21:26)
[2019-03-22 07:43] LABS: BASOPHILS # (AUTO) 0.01 x10^3/uL (0-0.1); BASOPHILS % (AUTO) 0 % (0-1); EOSINOPHILS # (AUTO) 0.09 x10^3/uL (0-0.4); EOSINOPHILS % (AUTO) 2 % (1-7); LYMPHOCYTES # (AUTO) 1.46 x10^3/uL (1-3.4); LYMPHOCYTES % (AUTO) 32 % (22-44); MD NO; MEAN CORPUSCULAR HEMOGLOBIN 31.9 pg (27.5-34.5); MEAN CORPUSCULAR HGB CONC 33.9 g/dL (33.2-36.2); MEAN CORPUSCULAR VOLUME 94.1 fL (81-97); MEAN PLATELET VOLUME 7.6 fL (7.4-10.4); MONOCYTES # (AUTO) 0.48 x10^3/uL (0.2-0.8); MONOCYTES % (AUTO) 11 % (2-9); NEUTROPHILS # (AUTO) 2.53 x10^3/uL (1.8-6.8); NEUTROPHILS % (AUTO) 55 % (42-75); PLATELET COUNT 197 x10^3/uL (130-400); RED BLOOD COUNT 4.75 x10^6/uL (4.38-5.82); RED CELL DISTRIBUTION WIDTH 12.4 % (9.4-14.8)
[2019-03-22 07:51] LABS: ALANINE AMINOTRANSFERASE 21 U/L (12-78); ANION GAP 7 mmol/L (5-15); CHLORIDE 106 mmol/L (98-107)
[2019-03-22 07:54] LABS: ALKALINE PHOSPHATASE 78 U/L (45-117); BILIRUBIN,TOTAL 0.5 mg/dL (0.2-1.0); CREATININE 0.58 mg/dL (0.7-1.3); TOTAL PROTEIN 6.2 g/dL (6.4-8.2)
[2019-03-22 08:05] VITALS: BP 143/93
[2019-03-22] MEDS: GLIPizide ER 5 MG TABLET PO SCH (08:54)
[2019-03-22] MEDS: CLOPIDOGREL 75 MG TABLET PO SCH (08:54)
[2019-03-22] MEDS: HYDROCHLOROTHIAZIDE 25 MG TABLET PO SCH (08:54)
[2019-03-22] MEDS: LOSARTAN 50MG TABLET PO SCH ×2 (08:54→21:20)
[2019-03-22] MEDS: SODIUM CHLORIDE FLUSH 10ML SYR IVF SCH ×2 (08:55→21:20)
[2019-03-22] MEDS: INSULIN GLARGINE 100 UNITS/ML, PEN SQ-INSULIN SCH ×2 (08:55→21:26)
[2019-03-22 15:17] VITALS: BP 123/86
[2019-03-22] MEDS: ACETAMINOPHEN 325 MG TABLET PO PRN (17:53)
[2019-03-22 19:07] VITALS: BP 118/82
[2019-03-22] MEDS: ATORVASTATIN 40 MG TABLET PO SCH (21:20)
[2019-03-23 00:49] VITALS: BP 112/76
[2019-03-23] MEDS: HEPARIN 5,000 UNITS/ML, 1ML SQ SCH ×3 (01:39→17:11)
[2019-03-23] MEDS: CARVEDILOL 12.5 MG TABLET PO SCH ×2 (05:52→17:11)
[2019-03-23] MEDS: ASPIRIN 81 MG TABLET EC PO SCH (05:52)
[2019-03-23 06:45] VITALS: BP 137/93
[2019-03-23 07:15] LABS: ANION GAP 5 mmol/L (5-15); CALCIUM 9.3 mg/dL (8.5-10.1); CHLORIDE 102 mmol/L (98-107)
[2019-03-23 07:21] LABS: ALANINE AMINOTRANSFERASE 31 U/L (12-78); ALKALINE PHOSPHATASE 79 U/L (45-117); BILIRUBIN,TOTAL 0.5 mg/dL (0.2-1.0); CREATININE 0.93 mg/dL (0.7-1.3); TOTAL PROTEIN 6.6 g/dL (6.4-8.2)
[2019-03-23] MEDS: INSULIN LISPRO 100 UNITS/ML, PEN SQ-INSULIN SCH ×4 (07:56→20:05)
[2019-03-23] MEDS: HYDROCHLOROTHIAZIDE 25 MG TABLET PO SCH (10:13)
[2019-03-23] MEDS: CLOPIDOGREL 75 MG TABLET PO SCH (10:13)
[2019-03-23] MEDS: INSULIN GLARGINE 100 UNITS/ML, PEN SQ-INSULIN SCH ×2 (10:14→20:06)
[2019-03-23] MEDS: SODIUM CHLORIDE FLUSH 10ML SYR IVF SCH ×2 (10:14→20:06)
[2019-03-23] MEDS: LOSARTAN 50MG TABLET PO SCH ×2 (10:14→20:05)
[2019-03-23] MEDS: GLIPizide ER 2.5 MG TABLET PO SCH (10:17)
[2019-03-23 13:10] VITALS: BP 121/82
[2019-03-23 15:03] LABS: THYROID STIMULATING HORMONE 1.66 mIU/L (0.358-3.740)
[2019-03-23 19:47] VITALS: BP 98/67
[2019-03-23] MEDS: ATORVASTATIN 40 MG TABLET PO SCH (20:04)
[2019-03-24] MEDS: HEPARIN 5,000 UNITS/ML, 1ML SQ SCH ×3 (00:09→17:02)
[2019-03-24 01:16] VITALS: BP 122/82
[2019-03-24] MEDS: ASPIRIN 81 MG TABLET EC PO SCH (05:20)
[2019-03-24] MEDS: CARVEDILOL 12.5 MG TABLET PO SCH ×2 (05:21→17:02)
[2019-03-24] MEDS: INSULIN LISPRO 100 UNITS/ML, PEN SQ-INSULIN SCH ×4 (07:00→21:19)
[2019-03-24 07:20] VITALS: BP 125/80
[2019-03-24 07:43] LABS: ALANINE AMINOTRANSFERASE 41 U/L (12-78); ALBUMIN 3.1 g/dL (3.4-5.0); ANION GAP 6 mmol/L (5-15); CHLORIDE 104 mmol/L (98-107); CREATININE 0.97 mg/dL (0.7-1.3)
[2019-03-24 07:45] LABS: ALKALINE PHOSPHATASE 78 U/L (45-117); BILIRUBIN,TOTAL 0.5 mg/dL (0.2-1.0); TOTAL PROTEIN 6.6 g/dL (6.4-8.2)
[2019-03-24] MEDS: CLOPIDOGREL 75 MG TABLET PO SCH (08:13)
[2019-03-24] MEDS: HYDROCHLOROTHIAZIDE 25 MG TABLET PO SCH (08:13)
[2019-03-24] MEDS: SODIUM CHLORIDE FLUSH 10ML SYR IVF SCH ×2 (08:14→21:20)
[2019-03-24] MEDS: LOSARTAN 50MG TABLET PO SCH ×2 (08:14→21:18)
[2019-03-24] MEDS: GLIPizide ER 2.5 MG TABLET PO SCH (08:14)
[2019-03-24] MEDS: INSULIN GLARGINE 100 UNITS/ML, PEN SQ-INSULIN SCH ×2 (09:00→21:19)
[2019-03-24 13:10] VITALS: BP 124/84
[2019-03-24] MEDS ORDERED: HYDROCORTISONE OINT 1%, 28GM TP PRN (15:30)
[2019-03-24] MEDS ORDERED: HYDROCORTISONE CRM 1%, 30GM TP PRN (19:00)
[2019-03-24 19:31] VITALS: BP 129/78
[2019-03-24] MEDS: ATORVASTATIN 40 MG TABLET PO SCH (21:18)
[2019-03-25 00:55] VITALS: BP 121/82
[2019-03-25] MEDS: HEPARIN 5,000 UNITS/ML, 1ML SQ SCH ×3 (01:00→16:25)
[2019-03-25] MEDS: CARVEDILOL 12.5 MG TABLET PO SCH ×2 (06:05→16:25)
[2019-03-25] MEDS: ASPIRIN 81 MG TABLET EC PO SCH (06:06)
[2019-03-25 06:08] VITALS: BP 144/90
[2019-03-25] MEDS: INSULIN LISPRO 100 UNITS/ML, PEN SQ-INSULIN SCH ×4 (07:00→19:53)
[2019-03-25] MEDS: INSULIN GLARGINE 100 UNITS/ML, PEN SQ-INSULIN SCH ×2 (08:21→19:54)
[2019-03-25] MEDS: CLOPIDOGREL 75 MG TABLET PO SCH (08:22)
[2019-03-25] MEDS: SODIUM CHLORIDE FLUSH 10ML SYR IVF SCH ×2 (08:22→19:52)
[2019-03-25] MEDS: GLIPizide ER 2.5 MG TABLET PO SCH (08:22)
[2019-03-25] MEDS: HYDROCHLOROTHIAZIDE 25 MG TABLET PO SCH (08:22)
[2019-03-25] MEDS: LOSARTAN 50MG TABLET PO SCH ×2 (08:22→19:53)
[2019-03-25 14:19] VITALS: BP 138/87
[2019-03-25 19:49] VITALS: BP 108/72
[2019-03-25] MEDS: ATORVASTATIN 40 MG TABLET PO SCH (19:53)
[2019-03-26] MEDS: HEPARIN 5,000 UNITS/ML, 1ML SQ SCH ×3 (01:20→17:00)
[2019-03-26 01:24] VITALS: BP 124/86
[2019-03-26] MEDS: CARVEDILOL 12.5 MG TABLET PO SCH (05:27)
[2019-03-26] MEDS: ASPIRIN 81 MG TABLET EC PO SCH (05:27)
[2019-03-26] MEDS: INSULIN LISPRO 100 UNITS/ML, PEN SQ-INSULIN SCH ×3 (07:00→17:23)
[2019-03-26 07:41] VITALS: BP 135/87
[2019-03-26] MEDS: LOSARTAN 50MG TABLET PO SCH (08:55)
[2019-03-26] MEDS: CLOPIDOGREL 75 MG TABLET PO SCH (08:55)
[2019-03-26] MEDS: GLIPizide ER 2.5 MG TABLET PO SCH (08:55)
[2019-03-26] MEDS: HYDROCHLOROTHIAZIDE 25 MG TABLET PO SCH (08:55)
[2019-03-26] MEDS: SODIUM CHLORIDE FLUSH 10ML SYR IVF SCH (08:56)
[2019-03-26] MEDS: INSULIN GLARGINE 100 UNITS/ML, PEN SQ-INSULIN SCH (08:56)
[2019-03-26 13:45] VITALS: BP 119/82
== END 2019-03-26 18:09 | disposition home or self-care (01) | DRG 637 ==
LOC: ED 14:09 → EDIP 14:49 → 4WST 17:06
PROVIDERS: ADMIT Internal Medicine; ATTEND Internal Medicine
DX: E11.65 Type 2 diabetes mellitus with hyperglycemia (principal); G93.41 Metabolic encephalopathy; E66.9 Obesity, unspecified; Z68.26 Body mass index [BMI] 26.0-26.9, adult; E78.5 Hyperlipidemia, unspecified; E86.0 Dehydration; F01.50 Vascular dementia, unspecified severity, without behavioral disturbance, psychotic disturbance, mood disturbance, and anxiety; I10 Essential (primary) hypertension; I35.8 Other nonrheumatic aortic valve disorders; I77.810 Thoracic aortic ectasia; Z79.4 Long term (current) use of insulin; Z79.82 Long term (current) use of aspirin; Z79.899 Other long term (current) drug therapy; Z91.14 Patient's other noncompliance with medication regimen; Z86.73 Personal history of transient ischemic attack (TIA), and cerebral infarction without residual deficits
CPT/HCPCS: 36415; 70450; 70553; 71045; 80053; 81001; 82010; 82607; 82803; 82947; 82962; 83735; 84443; 84484; 85025; 85651; 86140; 87040; 93005; 93306; 96361; 96374; G0378; J1644; J0360; J1815; J7030; J7120